=== PATIENT | female | born 1985 | race Caucasian/White ===

== ENCOUNTER 2017-03-04 17:19 | Emergency (ER) | payer OTHER ==
[~2017-03-04] VITALS: Ht 149.9 cm; Wt 68.0 kg
[2017-03-04 17:20] VITALS: BP 156/104
[2017-03-04] MEDS ORDERED: ULTRAM 50MG TAB50 MG PO (18:14)
== END 2017-03-04 18:17 | disposition home or self-care (01) ==
LOC: ER 17:19
DX: G89.18 Other acute postprocedural pain (principal); Z88.6 Allergy status to analgesic agent; Z88.5 Allergy status to narcotic agent

== ENCOUNTER 2017-03-10 09:56 | Emergency (ER) | payer OTHER ==
[~2017-03-10] VITALS: Ht 154.9 cm; Wt 134.7 kg
[~2017-03-10 09:56] MED LIST: ULTRAM 50MG TAB50 MG PO
[2017-03-10] MEDS ORDERED: LISINOPRIL10 MG PO (10:02)
[2017-03-10] MEDS ORDERED: COREG25 MG PO (10:02)
[2017-03-10] MEDS ORDERED: ALLOPURINOL 10100 M1 PO (10:03)
[2017-03-10] MEDS ORDERED: PENICILLIN V P500 MG PO (10:23)
[2017-03-10 10:30] VITALS: BP 185/109
== END 2017-03-10 10:30 | disposition home or self-care (01) ==
LOC: ER 09:56
DX: K02.9 Dental caries, unspecified (principal); I10 Essential (primary) hypertension; M10.9 Gout, unspecified; Z88.6 Allergy status to analgesic agent; Z88.5 Allergy status to narcotic agent